=== PATIENT | female | born 1985 | race Caucasian/White ===

== ENCOUNTER → 2020-06-24 | Outpatient (CLI) | payer MEDICAID ==
[2020-06-24 12:07] LABS: INR 0.9 (<1.2); Partial Thromboplastin Time 23.3 sec (22.0-30.0); Prothrombin Time 10.2 sec (9.0-12.0)
[2020-06-24 14:48] LABS: HCT 41.6 % (37.2-46.3); HGB 14.3 g/dL (12.0-15.0); MCH 30.4 pg (27.0-32.0); MCHC 34.4 g/dL (32.0-37.0); MCV 88.5 fL (80.0-97.0); Mean Platelet Volume 11.1 fL (9.5-12.2); Platelet Count 176 X 10*3/uL (140-440); RDW 11.3 % (11.5-14.5)
[2020-06-24 16:22] LABS: % Iron Saturation 16.34 (12.00-45.00); African American GFR (CKD) 112.3 (60.0-200.0); Albumin 4.3 g/dL (3.80-4.90); Albumin/Globulin Ratio 1.95 (1.60-3.17); Anion Gap 6.3 mmol/L (4.00-12.00); BUN/Creat Ratio 16.25 Ratio (12.00-20.00); Calcium 9.4 mg/dL (8.7-10.3); Carbon Dioxide 27.7 mmol/L (21.6-31.8); Chol/HDL Ratio 3.75; Globulin 2.2 g/dL (1.6-3.3); LDL Cholesterol,Calculated 126.8 mg/dL (0.0-131.0); Non-African American GFR(CKD) 96.9 (60.0-200.0); Potassium 4.4 mmol/L (3.5-5.5); Total Protein 6.5 g/dL (6.2-8.2); VLDL Calculation 16.2 mg/dL (5.00-40.00)
[2020-06-24 16:31] LABS: Ferritin 93.3 ng/mL (10.0-291.0)
== END | disposition home or self-care (01) ==
LOC: LABWHC1 10:12
PROVIDERS: ATTEND Family Medicine
DX: Z00.01 Encounter for general adult medical examination with abnormal findings (principal); R58 Hemorrhage, not elsewhere classified
CPT/HCPCS: 36415; 80053; 80061; 82728; 83540; 83550; 84439; 84443; 85027; 85610; 85730

== ENCOUNTER → 2021-07-25 | Outpatient (CLI) | payer MEDICAID ==
[2021-07-25 22:42] LABS: HCT 39.5 % (37.2-46.3); HGB 13.3 g/dL (12.0-15.0); MCH 29.8 pg (27.0-32.0); MCHC 33.7 g/dL (32.0-37.0); MCV 88.6 fL (80.0-97.0); Mean Platelet Volume 11.1 fL (9.5-12.2); NRBC Per 100 WBC 0 /100 WBCS (0.0-0.0); Platelet Count 173 X 10*3/uL (140-440); RBC 4.46 X 10*6/uL (4.10-5.20); RDW 12.2 % (11.5-14.5); WBC 7.02 X 10*3/uL (4.50-10.00)
[2021-07-25 23:02] LABS: African American GFR (CKD) 132.7 (60.0-200.0); Non-African American GFR(CKD) 114.5 (60.0-200.0)
[2021-07-26 03:04] LABS: HIV 2 AB Non-Reactive (Non-Reactive); HIV AB P24 Non-Reactive (Non-Reactive); HIV P24 AG Non-Reactive (Non-Reactive)
[2021-07-26 03:41] LABS: Hepatitis B Surface Antigen Nonreactive (Nonreactive)
== END | disposition home or self-care (01) ==
LOC: LABWHC1 15:14
PROVIDERS: ATTEND Obstetrics & Gynecology
DX: Z34.81 Encounter for supervision of other normal pregnancy, first trimester (principal)
CPT/HCPCS: 36415; 82565; 82947; 85027; 86762; 86780; 86850; 86900; 86901; 87340; 87390

== ENCOUNTER → 2021-10-10 | Outpatient (CLI) | payer MEDICAID ==
[2021-10-11 03:17] LABS: Cardiolipin Ab IgM Interp Positive (NEGATIVE); Cardiolipin IgM Antibody >112.0 U/mL
[2021-10-11 05:29] LABS: Cardiolipin Ab IgG Interp NEGATIVE (NEGATIVE)
== END | disposition home or self-care (01) ==
LOC: LABWHC1 16:01
DX: Z86.718 Personal history of other venous thrombosis and embolism (principal)
CPT/HCPCS: 36415; 81240; 81241; 85300; 85303; 85306; 85613; 85730; 86147

== ENCOUNTER → 2021-11-20 | Outpatient (CLI) | payer MEDICAID | END | disposition home or self-care (01) | LOC: LABWHC1 09:56 | PROVIDERS: ATTEND Obstetrics & Gynecology | DX: Z34.82 Encounter for supervision of other normal pregnancy, second trimester (principal); Z3A.00 Weeks of gestation of pregnancy not specified | CPT/HCPCS: 36415; 82950 ==

== ENCOUNTER → 2021-11-24 | Outpatient (CLI) | payer MEDICAID ==
[2021-11-24 14:26] LABS: Glucose 3 Hour, Gest 55 mg/dL
== END | disposition home or self-care (01) ==
LOC: LABWHC1 09:30
PROVIDERS: ATTEND Obstetrics & Gynecology
DX: O99.810 Abnormal glucose complicating pregnancy (principal); Z3A.00 Weeks of gestation of pregnancy not specified
CPT/HCPCS: 36415; 82951; 82952

== ENCOUNTER 2021-12-22 14:06 | Outpatient (CLI) | payer MEDICAID ==
[2021-12-22 15:53] VITALS: BP 129/61; PULSE 72; RESP 18; TEMP 97.8
== END 2021-12-22 15:05 | disposition home or self-care (01) ==
LOC: FBPOP 14:06
PROVIDERS: ATTEND Obstetrics & Gynecology
DX: O26.893 Other specified pregnancy related conditions, third trimester (principal); Z3A.31 31 weeks gestation of pregnancy; O22.33 Deep phlebothrombosis in pregnancy, third trimester; O99.113 Other diseases of the blood and blood-forming organs and certain disorders involving the immune mechanism complicating pregnancy, third trimester
CPT/HCPCS: 59025

== ENCOUNTER → 2021-12-22 | Outpatient (CLI) | payer MEDICAID ==
--- NOTE | 2021-12-22 13:50 | US ---
EXAMINATION TYPE: US OB BPP wo non-stress DATE OF EXAM: 12/22/2021 COMPARISON: First trimester ultrasound June 30, 2021 CLINICAL HISTORY: O09.519 SUPERVISION OF ELDERLY PRIMIGRAVIDA, UNSPE. TECHNIQUE: Transabdominal (TA). Scoring by the musical instrument supervisor during real-time assessment. FINDINGS: BPP PARAMETERS: PRESENTATION: Breech HEART RATE: 145 bpm RHYTHM: Normal SRINATH: 11.5 DIAPHRAGM IMAGED: YES BPP SCORIN. Breathin (1 episode of breathing of 30 second duration in 30 minutes of scanning time) 2. Movement: 2 (at least 3 discrete body movements in 30 minutes) 3. Tone: 2 (1 episode of active flexion/extension of limb) 4. SRINATH: 2 (SRINATH index > 5cm) NURSING EDUCATION SPECIALIST NOTES: IMPRESSION: Normal NST. TOTAL SCORE: 8 / 8
== END | disposition home or self-care (01) ==
LOC: RADUSWWP 13:02
PROVIDERS: ATTEND Obstetrics & Gynecology
DX: O09.519 Supervision of elderly primigravida, unspecified trimester (principal)
CPT/HCPCS: 76819

== ENCOUNTER 2021-12-26 11:04 | Outpatient (CLI) | payer MEDICAID ==
--- NOTE | 2022-01-05 08:02 | P.MSEPDOC ---
Presenting Problems - Arrival Data Date of Arrival on Unit: 12/26/21 Time of Arrival on Unit: 11:04 Mode of Transport: Ambulatory - Complaint OB-Reason for Admission/Chief Complaint: NST Comment: pt has written order for twice a week NST due to antiphospholipid syndrome 099.119 and DVT 022.30 Medical History - Information : 1 Para: 0 Term: 0 : 0 Abortions: Spontaneous or Elective: 0 Number of Living Children: 0 - Gestational Age Gestational Age by HEATHER (wks/days): 32 Weeks and 3 Days Review of Systems - Review of Systems Constitutional: No problems Breast: No problems ENT: No problems Cardiovascular: No problems Respiratory: No problems Gastrointestinal: No problems Genitourinary: No problems Musculoskeletal: No problems Neurological: No problems Skin: No problems Medical Screen Scoring - Assessment - Baby A Baseline FHR: 145 Heart Rate - NICHD Category: Category I (Normal) NST: Reactive Physician Notification - Physician Notified Physician Notified Date: 12/26/21 Physician Notified Time: 11:50 Physician: Xochitl Gottlieb New Order Received: Yes - Notification Comment Comment: reactive nst, orders received to l[place] pt home, follow up at next scheduled appt on on Wednesday in the office Maternal Triage Index - Maternal Triage Index Presenting for scheduled procedure w/no complaint: Yes - Scheduled/Requesting Priority 5 Scheduled/Requesting Priority 5: Yes Criteria Met for Priority 5: pt has written order for twice a week NST due to antiphospholipid syndrome 099.119 and DVT 022.30 Disposition - Disposition OB Disposition: Triage, Discharge to home, Written follow up instructions reviewed Discharge Date: 12/26/21 Discharge Time: 11:50 I agree with the RN Medical Screening Exam: Yes Case reviewed; plan agreed upon as documented in EMR&OBIX.: Yes Diagnosis: DEEP PHLEBOTHROMBOSIS IN , UNSPECIFIED TRIMESTER
== END 2021-12-26 11:50 | disposition home or self-care (01) ==
LOC: FBPOP 11:04
PROVIDERS: ATTEND Obstetrics & Gynecology
DX: O26.893 Other specified pregnancy related conditions, third trimester (principal); Z3A.32 32 weeks gestation of pregnancy; O22.33 Deep phlebothrombosis in pregnancy, third trimester
CPT/HCPCS: 59025

== ENCOUNTER 2021-12-30 13:14 | Outpatient (CLI) | payer MEDICAID | END 2021-12-30 13:59 | disposition home or self-care (01) | LOC: FBPOP 13:14 | PROVIDERS: ATTEND Obstetrics & Gynecology | DX: O26.893 Other specified pregnancy related conditions, third trimester (principal); Z3A.33 33 weeks gestation of pregnancy; O99.113 Other diseases of the blood and blood-forming organs and certain disorders involving the immune mechanism complicating pregnancy, third trimester; O22.33 Deep phlebothrombosis in pregnancy, third trimester | CPT/HCPCS: 59025 ==

== ENCOUNTER 2022-01-02 08:47 | Outpatient (CLI) | payer MEDICAID ==
[2022-01-02 09:18] VITALS: BP 113/68; PULSE 81; RESP 16
--- NOTE | 2022-01-02 09:32 | P.MSEPDOC ---
Presenting Problems - Arrival Data Date of Arrival on Unit: 01/02/22 Time of Arrival on Unit: 08:47 Mode of Transport: Ambulatory - Complaint OB-Reason for Admission/Chief Complaint: NST Comment: biweekly NST-Antiphospholipid Syndrome Medical History - Information : 1 Para: 0 - Gestational Age Gestational Age by HEATHER (wks/days): 33 Weeks and 3 Days Review of Systems - Review of Systems Constitutional: No problems Breast: No problems ENT: No problems Cardiovascular: No problems Respiratory: No problems Gastrointestinal: No problems Genitourinary: No problems Musculoskeletal: No problems Neurological: No problems Skin: No problems Vital Signs - Pulse Right Sitting Brachial Pulse Rate: 81 Pulse Assessment Method: Automatic Cuff - Respirations Respiratory Rate: 16 Oxygen Delivery Method: Room Air O2 Sat by Pulse Oximetry: 97 - Blood Pressure Right Arm Sitting Blood Pressure: 113/68 Blood Pressure Mean: 83 Blood Pressure Source: Automatic Cuff Medical Screen Scoring - Assessment - Baby A Baseline FHR: 130 Heart Rate - NICHD Category: Category I (Normal) NST: Reactive Physician Notification - Notification Comment Comment: Biweekly NST c\order; pt to be d/c home c\reactive NST Maternal Triage Index - Maternal Triage Index Presenting for scheduled procedure w/no complaint: Yes - Scheduled/Requesting Priority 5 Scheduled/Requesting Priority 5: Yes Criteria Met for Priority 5: BiweeklyNST Disposition - Disposition OB Disposition: Discharge to home, Written follow up instructions reviewed Discharge Date: 01/02/22 Discharge Time: 09:25 I agree with the RN Medical Screening Exam: Yes Case reviewed; plan agreed upon as documented in EMR&OBIX.: Yes Diagnosis: SUPERVISION OF OTHER HIGH RISK PREGNANCIES, THIRD TRIMESTER
== END 2022-01-02 09:20 | disposition home or self-care (01) ==
LOC: FBPOP 08:47
PROVIDERS: ATTEND Obstetrics & Gynecology
DX: O09.893 Supervision of other high risk pregnancies, third trimester (principal); Z3A.33 33 weeks gestation of pregnancy
CPT/HCPCS: 59025

== ENCOUNTER 2022-01-06 11:42 | Outpatient (CLI) | payer MEDICAID ==
[2022-01-06 13:04] VITALS: BP 113/68; PULSE 81; RESP 18
--- NOTE | 2022-01-09 06:55 | P.MSEPDOC ---
Presenting Problems - Arrival Data Date of Arrival on Unit: 01/06/22 Time of Arrival on Unit: 11:42 Mode of Transport: Ambulatory - Complaint OB-Reason for Admission/Chief Complaint: NST Comment: Antiphospholipid [id number] DVT 022.30 Medical History - Information : 1 Para: 0 Term: 0 : 0 Abortions: Spontaneous or Elective: 0 Number of Living Children: 0 - Gestational Age Gestational Age by HEATHER (wks/days): 34 Weeks and 0 Days - History Comment: Antiphospholipid [id number] DVT 022.30 on Lovenox Review of Systems - Review of Systems Constitutional: No problems Breast: No problems ENT: No problems Cardiovascular: No problems Respiratory: No problems Gastrointestinal: No problems Genitourinary: No problems Musculoskeletal: No problems Neurological: No problems Skin: No problems Vital Signs - Pulse Pulse Oximetery Pulse Rate: 81 Pulse Assessment Method: Automatic Cuff - Respirations Respiratory Rate: 18 Oxygen Delivery Method: Room Air O2 Sat by Pulse Oximetry: 97 - Blood Pressure Right Arm Blood Pressure: 113/68 Blood Pressure Mean: 83 Blood Pressure Source: Automatic Cuff Medical Screen Scoring - Uterine Contractions Frequency From (mins): 0 Frequency To (mins): 0 Duration From (seconds): 0 Duration To (seconds): 0 - Assessment - Baby A Baseline FHR: 135 Heart Rate - NICHD Category: Category I (Normal) NST: Reactive Physician Notification - Physician Notified Physician Notified Date: 01/06/22 Physician: Isabela Palacios Order Received: Yes - Notification Comment Comment: Discharge home is NST reactive Maternal Triage Index - Maternal Triage Index Presenting for scheduled procedure w/no complaint: Yes - Scheduled/Requesting Priority 5 Scheduled/Requesting Priority 5: Yes Criteria Met for Priority 5: Here for twice a weekly NST Disposition - Disposition OB Disposition: Discharge to home Discharge Date: 01/06/22 Discharge Time: 12:37 I agree with the RN Medical Screening Exam: Yes Case reviewed; plan agreed upon as documented in EMR&OBIX.: Yes Diagnosis: ANTIPHOSPHOLIPID SYNDROME
== END 2022-01-06 12:37 | disposition home or self-care (01) ==
LOC: FBPOP 11:42
PROVIDERS: ATTEND Obstetrics & Gynecology
DX: O26.893 Other specified pregnancy related conditions, third trimester (principal); Z3A.34 34 weeks gestation of pregnancy; O99.113 Other diseases of the blood and blood-forming organs and certain disorders involving the immune mechanism complicating pregnancy, third trimester; D68.61 Antiphospholipid syndrome
CPT/HCPCS: 59025

== ENCOUNTER 2022-01-08 14:25 | Outpatient (CLI) | payer MEDICAID ==
[2022-01-08 14:55] VITALS: BP 122/77; PULSE 84; RESP 16; TEMP 96.9
--- NOTE | 2022-01-09 06:53 | P.MSEPDOC ---
Presenting Problems - Arrival Data Date of Arrival on Unit: 01/08/22 Time of Arrival on Unit: 14:25 Mode of Transport: Ambulatory - Complaint OB-Reason for Admission/Chief Complaint: NST Medical History - Information : 1 Para: 0 Number of Living Children: 0 - Gestational Age Gestational Age by HEATHER (wks/days): 34 Weeks and 2 Days - History Complications: Other Review of Systems - Review of Systems Constitutional: No problems Breast: No problems ENT: No problems Cardiovascular: No problems Respiratory: No problems Gastrointestinal: No problems Genitourinary: No problems Musculoskeletal: No problems Neurological: No problems Skin: No problems Vital Signs - Temperature Temperature: 96.9 F Temperature Source: Temporal Artery Scan - Pulse Right Sitting Brachial Pulse Rate: 84 Pulse Assessment Method: Automatic Cuff - Respirations Respiratory Rate: 16 Oxygen Delivery Method: Room Air O2 Sat by Pulse Oximetry: 100 - Blood Pressure Right Arm Sitting Blood Pressure: 122/77 Blood Pressure Mean: 92 Blood Pressure Source: Automatic Cuff Maternal Triage Index - Maternal Triage Index Presenting for scheduled procedure w/no complaint: Yes - Scheduled/Requesting Priority 5 Scheduled/Requesting Priority 5: Yes Criteria Met for Priority 5: written order for twice weekly NST Disposition - Disposition OB Disposition: Discharge to home Discharge Date: 01/08/22 Discharge Time: 14:54 I agree with the RN Medical Screening Exam: Yes Case reviewed; plan agreed upon as documented in EMR&OBIX.: Yes Diagnosis: SUPERVISION OF ELDERLY PRIMIGRAVIDA, THIRD TRIMESTER
== END 2022-01-08 14:55 | disposition home or self-care (01) ==
LOC: FBPOP 14:25
PROVIDERS: ATTEND Obstetrics & Gynecology
DX: O09.513 Supervision of elderly primigravida, third trimester (principal); Z3A.34 34 weeks gestation of pregnancy
CPT/HCPCS: 59025

== ENCOUNTER → 2022-01-08 | Outpatient (CLI) | payer MEDICAID ==
--- NOTE | 2022-01-08 17:04 | US ---
EXAMINATION TYPE: US OB BPP wo non-stress DATE OF EXAM: 01/08/2022 COMPARISON: 12/22/2021 CLINICAL HISTORY: 36-year-old female O09.529 O99.119. NST TECHNIQUE: Transabdominal (TA). Scoring by the physician intensivist during real-time assessment. FINDINGS: BPP PARAMETERS: PRESENTATION: Breech HEART RATE: 148 bpm RHYTHM: Normal SRINATH: 12.83 cm DIAPHRAGM IMAGED: Yes BPP SCORIN. Breathin (1 episode of breathing of 30 second duration in 30 minutes of scanning time) 2. Movement: 2 (at least 3 discrete body movements in 30 minutes) 3. Tone: 2 (1 episode of active flexion/extension of limb) 4. SRINATH: 2 (SRINATH index > 5cm) IMPRESSION: TOTAL SCORE: 8 / 8
== END | disposition home or self-care (01) ==
LOC: RADUSWWP 13:30
PROVIDERS: ATTEND Obstetrics & Gynecology
DX: O09.529 Supervision of elderly multigravida, unspecified trimester (principal); O99.119 Other diseases of the blood and blood-forming organs and certain disorders involving the immune mechanism complicating pregnancy, unspecified trimester
CPT/HCPCS: 76819

== ENCOUNTER 2022-01-13 12:01 | Outpatient (CLI) | payer MEDICAID | END 2022-01-13 12:35 | disposition home or self-care (01) | LOC: FBPOP 12:01 | PROVIDERS: ATTEND Obstetrics & Gynecology | DX: O26.893 Other specified pregnancy related conditions, third trimester (principal); Z3A.35 35 weeks gestation of pregnancy; O22.33 Deep phlebothrombosis in pregnancy, third trimester; O99.113 Other diseases of the blood and blood-forming organs and certain disorders involving the immune mechanism complicating pregnancy, third trimester | CPT/HCPCS: 59025 ==

== ENCOUNTER 2022-01-15 13:40 | Outpatient (CLI) | payer MEDICAID ==
--- NOTE | 2022-01-16 08:41 | P.MSEPDOC ---
Presenting Problems - Arrival Data Date of Arrival on Unit: 01/15/22 Time of Arrival on Unit: 13:40 Mode of Transport: Ambulatory - Complaint OB-Reason for Admission/Chief Complaint: NST Comment: pt presents to triage for bi weekly NST for antiphospholipid syndrome 099.119 and DVT 022.30 Medical History - Information : 1 Para: 0 Term: 0 : 0 Abortions: Spontaneous or Elective: 0 Number of Living Children: 0 - Gestational Age Gestational Age by HEATHER (wks/days): 35 Weeks and 2 Days - History Complications: Breech Review of Systems - Review of Systems Constitutional: No problems Breast: No problems ENT: No problems Cardiovascular: No problems Respiratory: No problems Gastrointestinal: No problems Genitourinary: No problems Musculoskeletal: No problems Neurological: No problems Skin: No problems Medical Screen Scoring - Assessment - Baby A Baseline FHR: 140 Heart Rate - NICHD Category: Category I (Normal) NST: Reactive Physician Notification - Notification Comment Comment: NST reactive Maternal Triage Index - Maternal Triage Index Presenting for scheduled procedure w/no complaint: Yes - Stat/Priority 1 Stat Priority 1: No - Urgent/Priority 2 Urgent Priority 2: No - Prompt/Priority 3 Prompt Priority 3: No - Non-Urgent/Priority 4 Non-Urgent Priority 4: No - Scheduled/Requesting Priority 5 Scheduled/Requesting Priority 5: Yes Criteria Met for Priority 5: pt presents to triage for bi weekly NST for antiphospholipid syndrome 099.119 and DVT 022.30 Disposition - Disposition OB Disposition: Triage, Discharge to home, Written follow up instructions reviewed Discharge Date: 01/15/22 Discharge Time: 14:30 I agree with the RN Medical Screening Exam: Yes Case reviewed; plan agreed upon as documented in EMR&OBIX.: Yes Diagnosis: SUPERVISION OF OTHER HIGH RISK PREGNANCIES, THIRD TRIMESTER
== END 2022-01-15 14:25 | disposition home or self-care (01) ==
LOC: FBPOP 13:40
PROVIDERS: ATTEND Obstetrics & Gynecology
DX: O09.893 Supervision of other high risk pregnancies, third trimester (principal); Z3A.35 35 weeks gestation of pregnancy
CPT/HCPCS: 59025

== ENCOUNTER → 2022-01-15 | Outpatient (CLI) | payer MEDICAID ==
--- NOTE | 2022-01-15 17:00 | US ---
EXAMINATION TYPE: US OB BPP wo non-stress DATE OF EXAM: 01/15/2022 COMPARISON: NONE CLINICAL HISTORY: 36-year-old female AMA O09.529, O99.119. Decreased movements TECHNIQUE: Transabdominal (TA). Scoring by the countersinker balance screw hole during real-time assessment. FINDINGS: BPP PARAMETERS: PRESENTATION: Breech LIE: Longitudinal?? HEART RATE: 125 bpm RHYTHM: Normal SRINATH: 10.8 DIAPHRAGM IMAGED: yes BPP SCORIN. Breathin (1 episode of breathing of 30 second duration in 30 minutes of scanning time) 2. Movement: 2 (at least 3 discrete body movements in 30 minutes) 3. Tone: 2 (1 episode of active flexion/extension of limb) 4. SRINATH: 2 (SRINATH index > 5cm) IMPRESSION: TOTAL SCORE: 8 / 8
== END | disposition home or self-care (01) ==
LOC: RADUSWWP 12:22
PROVIDERS: ATTEND Obstetrics & Gynecology
DX: O09.529 Supervision of elderly multigravida, unspecified trimester (principal); O99.119 Other diseases of the blood and blood-forming organs and certain disorders involving the immune mechanism complicating pregnancy, unspecified trimester
CPT/HCPCS: 76819

== ENCOUNTER 2022-01-20 13:51 | Outpatient (CLI) | payer MEDICAID ==
[2022-01-20 14:26] VITALS: BP 116/68; PULSE 88; RESP 15; TEMP 97
--- NOTE | 2022-01-21 19:24 | P.MSEPDOC ---
Presenting Problems - Arrival Data Date of Arrival on Unit: 01/20/22 Time of Arrival on Unit: 13:51 Mode of Transport: Ambulatory - Complaint OB-Reason for Admission/Chief Complaint: NST Comment: Pt presents to triage for bi-weekly NST per written order from Dr. Palacios for Antiphospholipid Syndrome O99.119 and DVT O22.30 Medical History - Information : 1 Para: 0 Term: 0 : 0 Abortions: Spontaneous or Elective: 0 Number of Living Children: 0 - Gestational Age Gestational Age by HEATHER (wks/days): 36 Weeks and 0 Days Review of Systems - Review of Systems Constitutional: No problems Breast: No problems ENT: No problems Cardiovascular: No problems Respiratory: No problems Gastrointestinal: No problems Genitourinary: No problems Musculoskeletal: No problems Neurological: No problems Skin: No problems Vital Signs - Temperature Temperature: 97.0 F Temperature Source: Temporal Artery Scan - Pulse Pulse Oximetery Pulse Rate: 88 Pulse Assessment Method: Pulse Oximetry - Respirations Respiratory Rate: 15 Oxygen Delivery Method: Room Air O2 Sat by Pulse Oximetry: 95 - Blood Pressure Right Arm Blood Pressure: 116/68 Blood Pressure Mean: 84 Blood Pressure Source: Automatic Cuff Medical Screen Scoring - Assessment - Baby A Baseline FHR: 145 Heart Rate - NICHD Category: Category I (Normal) NST: Reactive Physician Notification - Notification Comment Comment: Pt discharged home per written order if NST reactive Maternal Triage Index - Maternal Triage Index Presenting for scheduled procedure w/no complaint: Yes - Scheduled/Requesting Priority 5 Scheduled/Requesting Priority 5: Yes Criteria Met for Priority 5: Pt presents to triage for bi-weekly NST per written order from Dr. Palacios for Antiphospholipid Syndrome O99.119 and DVT O22.30 Disposition - Disposition OB Disposition: Discharge to home, Written follow up instructions reviewed Discharge Date: 01/20/22 Discharge Time: 14:19 I agree with the RN Medical Screening Exam: Yes Case reviewed; plan agreed upon as documented in EMR&OBIX.: Yes Diagnosis: SUPERVISION OF OTHER HIGH RISK PREGNANCIES, THIRD TRIMESTER
== END 2022-01-20 14:19 | disposition home or self-care (01) ==
LOC: FBPOP 13:51
PROVIDERS: ATTEND Obstetrics & Gynecology
DX: O22.33 Deep phlebothrombosis in pregnancy, third trimester (principal); D68.61 Antiphospholipid syndrome; O09.893 Supervision of other high risk pregnancies, third trimester; O99.113 Other diseases of the blood and blood-forming organs and certain disorders involving the immune mechanism complicating pregnancy, third trimester; Z3A.36 36 weeks gestation of pregnancy
CPT/HCPCS: 59025

== ENCOUNTER 2022-01-22 14:00 | Outpatient (CLI) | payer MEDICAID ==
[2022-01-22 14:50] VITALS: BP 128/87; PULSE 83; RESP 18; TEMP 98
--- NOTE | 2022-01-24 09:13 | P.MSEPDOC ---
Presenting Problems - Arrival Data Date of Arrival on Unit: 01/22/22 Time of Arrival on Unit: 14:00 Mode of Transport: Ambulatory - Complaint OB-Reason for Admission/Chief Complaint: NST Medical History - Information : 1 Para: 0 Term: 0 : 0 Abortions: Spontaneous or Elective: 0 Number of Living Children: 0 - Gestational Age Gestational Age by HEATHER (wks/days): 36 Weeks and 2 Days - History Comment: Hx DVT on heparin, antiphospholipid syndrome Review of Systems - Review of Systems Constitutional: No problems Breast: No problems ENT: No problems Cardiovascular: No problems Respiratory: No problems Gastrointestinal: No problems Genitourinary: No problems Musculoskeletal: No problems Neurological: No problems Skin: No problems Vital Signs - Temperature Temperature: 98.0 F Temperature Source: Oral - Pulse Right Sitting Brachial Pulse Rate: 83 Pulse Assessment Method: Automatic Cuff - Respirations Respiratory Rate: 18 Oxygen Delivery Method: Room Air O2 Sat by Pulse Oximetry: 98 - Blood Pressure Right Arm Sitting Blood Pressure: 128/87 Blood Pressure Mean: 100 Blood Pressure Source: Automatic Cuff Medical Screen Scoring - Cervical Exam Dilation (cm): 0 Effacement (%): 0 Station: -2 - Uterine Contractions Frequency From (mins): 2 Frequency To (mins): 4 Duration From (seconds): 30 Duration To (seconds): 40 Intensity: Mild Resting: Soft to palpation - Assessment - Baby A Baseline FHR: 125 Heart Rate - NICHD Category: Category I (Normal) NST: Reactive Physician Notification - Physician Notified Physician Notified Date: 01/22/22 Physician Notified Time: 14:45 Physician: Xochitl Gottlieb New Order Received: Yes (al home. Follow up with Dr Palacios tomorrow as scheduled.) Maternal Triage Index - Maternal Triage Index Presenting for scheduled procedure w/no complaint: Yes - Scheduled/Requesting Priority 5 Scheduled/Requesting Priority 5: Yes Criteria Met for Priority 5: bi weekly NST Disposition - Disposition OB Disposition: Discharge to home Discharge Date: 01/22/22 Discharge Time: 14:45 I agree with the RN Medical Screening Exam: Yes Case reviewed; plan agreed upon as documented in EMR&OBIX.: Yes Diagnosis: SUPERVISION OF HIGH RISK , UNSP, THIRD TRIMESTER
== END 2022-01-22 14:50 | disposition home or self-care (01) ==
LOC: FBPOP 14:00
PROVIDERS: ATTEND Obstetrics & Gynecology
DX: O09.893 Supervision of other high risk pregnancies, third trimester (principal); Z3A.36 36 weeks gestation of pregnancy
CPT/HCPCS: 59025

== ENCOUNTER → 2022-01-22 | Outpatient (CLI) | payer MEDICAID ==
--- NOTE | 2022-01-22 14:13 | US ---
EXAMINATION TYPE: US OB BPP wo non-stress DATE OF EXAM: 01/22/2022 COMPARISON: US CLINICAL HISTORY: O09.529 SUPERVISION OF ELDERLY MULTIGRAVID O99.119. BPP. . TECHNIQUE: Transabdominal (TA). Scoring by the planting machine operator during real-time assessment. FINDINGS: BPP PARAMETERS: PRESENTATION: Breech LIE: Longitudinal?? HEART RATE: 136 bpm RHYTHM: Normal SRINATH: 12.0 DIAPHRAGM IMAGED: Yes BPP SCORIN. Breathin (1 episode of breathing of 30 second duration in 30 minutes of scanning time) 2. Movement: 2 (at least 3 discrete body movements in 30 minutes) 3. Tone: 2 (1 episode of active flexion/extension of limb) 4. SRINATH: 2 (SRINATH index > 5cm) NUTRITIONALIST NOTES: IMPRESSION: TOTAL SCORE: 8 / 8
== END | disposition home or self-care (01) ==
LOC: RADUSWWP 13:05
PROVIDERS: ATTEND Obstetrics & Gynecology
DX: O09.529 Supervision of elderly multigravida, unspecified trimester (principal); O99.119 Other diseases of the blood and blood-forming organs and certain disorders involving the immune mechanism complicating pregnancy, unspecified trimester
CPT/HCPCS: 76819

== ENCOUNTER 2022-01-27 17:13 | Outpatient (CLI) | payer MEDICAID ==
[2022-01-27 17:52] VITALS: BP 128/81; PULSE 87; RESP 16; TEMP 97
== END 2022-01-27 17:45 | disposition home or self-care (01) ==
LOC: FBPOP 17:13
PROVIDERS: ATTEND Obstetrics & Gynecology
DX: O99.113 Other diseases of the blood and blood-forming organs and certain disorders involving the immune mechanism complicating pregnancy, third trimester (principal); D68.61 Antiphospholipid syndrome; O22.33 Deep phlebothrombosis in pregnancy, third trimester; Z3A.37 37 weeks gestation of pregnancy
CPT/HCPCS: 59025

== ENCOUNTER → 2022-01-27 | Outpatient (CLI) | payer MEDICAID ==
[2022-01-27 22:54] LABS: HCT 35.3 % (37.2-46.3); HGB 11.9 g/dL (12.0-15.0); MCH 30.7 pg (27.0-32.0); MCHC 33.7 g/dL (32.0-37.0); MCV 91.2 fL (80.0-97.0); Mean Platelet Volume 11.7 fL (9.5-12.2); NRBC Per 100 WBC 0 /100 WBCS (0.0-0.0); Platelet Count 140 X 10*3/uL (140-440); RBC 3.87 X 10*6/uL (4.10-5.20); RDW 13.1 % (11.5-14.5); WBC 10.96 X 10*3/uL (4.50-10.00)
[2022-01-27 23:47] LABS: Non-African American GFR(CKD) 114.8 (60.0-200.0)
== END | disposition home or self-care (01) ==
LOC: LABWHC1 16:18
PROVIDERS: ATTEND Internal Medicine
DX: O16.3 Unspecified maternal hypertension, third trimester (principal); Z3A.00 Weeks of gestation of pregnancy not specified
CPT/HCPCS: 36415; 82565; 82570; 83625; 84156; 84450; 84460; 85027

== ENCOUNTER 2022-01-29 19:32 | Outpatient (CLI) | payer MEDICAID ==
[2022-01-29 20:35] VITALS: BP 120/76; PULSE 101; RESP 16; TEMP 96.4
--- NOTE | 2022-02-05 12:06 | P.MSEPDOC ---
Presenting Problems - Arrival Data Date of Arrival on Unit: 01/29/22 Time of Arrival on Unit: 19:32 Mode of Transport: Ambulatory - Complaint OB-Reason for Admission/Chief Complaint: NST Comment: Patient presents to triage for weekly NST per physician order. Medical History - Information : 1 Para: 0 - Gestational Age Gestational Age by HEATHER (wks/days): 89 Weeks and 3 Days - History Comment: mother has history of superficial blood clots and is currently on heparin Review of Systems - Review of Systems Constitutional: No problems Breast: No problems ENT: No problems Cardiovascular: No problems Respiratory: No problems Gastrointestinal: No problems Genitourinary: No problems Musculoskeletal: No problems Neurological: No problems Skin: No problems Vital Signs - Temperature Temperature: 96.4 F Temperature Source: Axillary - Pulse Pulse Oximetery Pulse Rate: 101 Pulse Assessment Method: Pulse Oximetry - Respirations Respiratory Rate: 16 Oxygen Delivery Method: Room Air O2 Sat by Pulse Oximetry: 96 - Blood Pressure Right Arm Blood Pressure: 120/76 Blood Pressure Mean: 90 Blood Pressure Source: Automatic Cuff Medical Screen Scoring - Assessment - Baby A Baseline FHR: 135 Heart Rate - NICHD Category: Category I (Normal) NST: Reactive Physician Notification - Physician Notified Physician Notified Date: 01/29/22 Physician Notified Time: 19:32 Maternal Triage Index - Stat/Priority 1 Stat Priority 1: No - Urgent/Priority 2 Urgent Priority 2: No - Prompt/Priority 3 Prompt Priority 3: No - Non-Urgent/Priority 4 Non-Urgent Priority 4: Yes Criteria Met for Priority 4: Patient presents to triage for weekly NST per physician order. Disposition - Disposition OB Disposition: Discharge to home Discharge Date: 01/29/22 Discharge Time: 20:00 I agree with the RN Medical Screening Exam: Yes Case reviewed; plan agreed upon as documented in EMR&OBIX.: Yes Diagnosis: OBESITY COMPLICATING , THIRD TRIMESTER
== END 2022-01-29 20:02 ==
LOC: FBPOP 19:32
PROVIDERS: ATTEND Obstetrics & Gynecology
DX: O99.213 Obesity complicating pregnancy, third trimester (principal); Z3A.39 39 weeks gestation of pregnancy
CPT/HCPCS: 99213

== ENCOUNTER 2022-02-03 11:32 | Outpatient (CLI) | payer MEDICAID ==
[2022-02-03 12:41] VITALS: BP 120/70; PULSE 94; RESP 18; TEMP 97.2
--- NOTE | 2022-02-03 21:26 | P.MSEPDOC ---
Presenting Problems - Arrival Data Date of Arrival on Unit: 02/03/22 Time of Arrival on Unit: 11:32 Mode of Transport: Ambulatory - Complaint OB-Reason for Admission/Chief Complaint: NST Comment: NST for hx of DVT 022.30 and Antiphospholipid syndrome 099.119 Medical History - Information : 1 Para: 0 Term: 0 : 0 Abortions: Spontaneous or Elective: 0 Number of Living Children: 0 - Gestational Age Gestational Age by HEATEHR (wks/days): 38 Weeks and 0 Days - History Complications: Other Comment: Antiphospholipid syndrome Review of Systems - Review of Systems Constitutional: No problems Breast: No problems ENT: No problems Cardiovascular: No problems Respiratory: No problems Gastrointestinal: No problems Genitourinary: No problems Musculoskeletal: No problems Neurological: No problems Skin: No problems Vital Signs - Temperature Temperature: 97.2 F Temperature Source: Temporal Artery Scan - Pulse Pulse Oximetery Pulse Rate: 94 Pulse Assessment Method: Pulse Oximetry - Respirations Respiratory Rate: 18 Oxygen Delivery Method: Room Air O2 Sat by Pulse Oximetry: 99 - Blood Pressure Right Arm Blood Pressure: 120/70 Blood Pressure Mean: 86 Blood Pressure Source: Automatic Cuff Medical Screen Scoring - Assessment - Baby A Baseline FHR: 135 Heart Rate - NICHD Category: Category I (Normal) NST: Reactive Physician Notification - Notification Comment Comment: Twice weekly NST, written orders to discharge home if reactive Maternal Triage Index - Maternal Triage Index Presenting for scheduled procedure w/no complaint: Yes - Scheduled/Requesting Priority 5 Scheduled/Requesting Priority 5: Yes Criteria Met for Priority 5: Twice weekly NST Disposition - Disposition OB Disposition: Discharge to home Discharge Date: 02/03/22 Discharge Time: 12:20 I agree with the RN Medical Screening Exam: Yes Case reviewed; plan agreed upon as documented in EMR&OBIX.: Yes Diagnosis: OBESITY COMPLICATING , THIRD TRIMESTER
== END 2022-02-03 12:20 | disposition home or self-care (01) ==
LOC: FBPOP 11:32
PROVIDERS: ATTEND Obstetrics & Gynecology
DX: O99.213 Obesity complicating pregnancy, third trimester (principal); Z3A.38 38 weeks gestation of pregnancy
CPT/HCPCS: 59025; 99213

== ENCOUNTER → 2022-02-03 | Outpatient (CLI) | payer MEDICAID ==
--- NOTE | 2022-02-03 11:54 | US ---
EXAMINATION TYPE: US OB BPP wo non-stress DATE OF EXAM: 02/03/2022 COMPARISON: 01/22/2022 CLINICAL HISTORY: 36-year-old female O09.529 SUPERVISION OF ELDERLY MULTIGRAVID O99.119. BPP TECHNIQUE: Transabdominal (TA). Scoring by the hog pusher during real-time assessment. FINDINGS: BPP PARAMETERS: PRESENTATION: Breech HEART RATE: 132 bpm RHYTHM: Normal SRINATH: 8.9 cm DIAPHRAGM IMAGED: Yes BPP SCORIN. Breathin (1 episode of breathing of 30 second duration in 30 minutes of scanning time) 2. Movement: 2 (at least 3 discrete body movements in 30 minutes) 3. Tone: 2 (1 episode of active flexion/extension of limb) 4. SRINATH: 2 (SRINATH index > 5cm) IMPRESSION: TOTAL SCORE: 8 / 8. Note that the SRINATH is at the lower end of the normal range at 8.9 cm (measured at 12 cm previously).
== END | disposition home or self-care (01) ==
LOC: RADUSWWP 11:03
PROVIDERS: ATTEND Obstetrics & Gynecology
DX: O09.529 Supervision of elderly multigravida, unspecified trimester (principal); O99.119 Other diseases of the blood and blood-forming organs and certain disorders involving the immune mechanism complicating pregnancy, unspecified trimester
CPT/HCPCS: 76819

== ENCOUNTER 2022-02-06 13:59 | Outpatient (CLI) | payer MEDICAID ==
[2022-02-06 15:08] VITALS: BP 121/79; PULSE 87; RESP 16; TEMP 96.5
== END 2022-02-06 14:35 | disposition home or self-care (01) ==
LOC: FBPOP 13:59
PROVIDERS: ATTEND Obstetrics & Gynecology
DX: O22.30 Deep phlebothrombosis in pregnancy, unspecified trimester (principal); O99.119 Other diseases of the blood and blood-forming organs and certain disorders involving the immune mechanism complicating pregnancy, unspecified trimester; Z3A.38 38 weeks gestation of pregnancy
CPT/HCPCS: 59025

== ENCOUNTER 2022-02-10 18:25 | Inpatient (IN) | payer MEDICAID ==
[2022-02-10] MEDS ORDERED: ceFAZolin 3 GM in SODIUM CHLORIDE 0.9% 100 ML IVPB ONE (18:58)
[2022-02-10] MEDS ORDERED: LACTATED RINGERS 1,000 ML IV ONE (18:58)
[2022-02-10] MEDS ORDERED: CITRIC ACID-SODIUM CITRATE 15 ML CUP PO ONE (18:58)
[2022-02-10] MEDS ORDERED: LIDOCAINE 1% (10MG/ML) FOR IV START INTRADERMA PRN (18:58)
[2022-02-10 19:10] LABS: Basophils # (A) 0.1 k/uL (0-0.2); Basophils % (A) 1 %; Eosinophils # (A) 0.1 k/uL (0-0.7); Eosinophils % (A) 1 %; HCT 35.9 % (34.0-46.0); Lymphocytes # (A) 1.8 k/uL (1.0-4.8); Lymphocytes % (A) 17 %; MCH 31.2 pg (25.0-35.0); MCHC 36.2 g/dL (31.0-37.0); MCV 86.2 fL (80.0-100.0); Mean Platelet Volume 9.4; Monocytes # (A) 0.5 k/uL (0-1.0); Monocytes % (A) 4 %; Neutrophils # (A) 8.2 k/uL (1.3-7.7); Neutrophils % (A) 76 %; Platelet Count 151 k/uL (150-450); RBC 4.17 m/uL (3.80-5.40); RDW 13.3 % (11.5-15.5); WBC 10.9 k/uL (3.8-10.6)
[2022-02-10] MEDS: LACTATED RINGERS 1,000 ML IV SCH (19:20)
[2022-02-10] MEDS ORDERED: diphenhydrAMINE 50 MG/ML 1 ML VIAL IVP PRN ×2 (20:05→20:37)
[2022-02-10] MEDS ORDERED: ONDANSETRON 4 MG/2 ML VIAL IVP PRN (20:05)
[2022-02-10] MEDS ORDERED: NALBUPHINE 10 MG/ML (1 ML AMP) IV PRN (20:05)
[2022-02-10] MEDS ORDERED: NALOXONE 0.4 MG/ML 1 ML VIAL IV PRN (20:05)
[2022-02-10] MEDS ORDERED: MORPHINE SULFATE 2 MG/ML SYRINGE IVP PRN (20:05)
[2022-02-10] MEDS ORDERED: KETOROLAC 15 MG/ML 1 ML VIAL IVP PRN (20:05)
[2022-02-10] MEDS ORDERED: diphenhydrAMINE 50 MG CAP PO PRN (20:37)
[2022-02-10] MEDS ORDERED: ZOLPIDEM 5 MG TAB PO PRN (20:37)
[2022-02-10] MEDS ORDERED: LANOLIN CREAM 5 GM TUBE TOPICAL PRN (20:37)
[2022-02-10] MEDS ORDERED: METOCLOPRAMIDE 5 MG/ML 2 ML VIAL IVP PRN (20:37)
[2022-02-10] MEDS ORDERED: diphenhydrAMINE 25 MG CAP PO PRN (20:37)
[2022-02-10] MEDS ORDERED: SIMETHICONE 80 MG CHEWABLE PO PRN (20:37)
[2022-02-10] MEDS ORDERED: OXYTOCIN 30 UNITS/500 ML NS 30 UNIT in SALINE 1 500ML.BAG IV SCH (20:37)
[2022-02-11] MEDS: ACETAMINOPHEN TAB 500 MG TAB PO SCH ×4 (00:07→18:07)
[2022-02-11] MEDS: ACETAMINOPHEN IV (For NPO) 1,000 MG in EMPTY BAG 1 BAG IVPB SCH ×2 (00:08→09:15)
[2022-02-11] MEDS: LACTATED RINGERS 1,000 ML IV SCH ×2 (00:09→13:58)
[2022-02-11] MEDS: IBUPROFEN 600 MG TAB PO SCH ×4 (05:29→21:29)
--- NOTE | 2022-02-11 07:33 | P.PN ---
Progress Note - Text Progress Note Date: 02/11/22 Postop day 1 from under spinal anesthesia with intrathecal morphine given for postop pain management. Patient is doing well. Pain is well controlled. On visual analog scale 2/10 Mild itching present No nausea or vomiting reported. No Headache or weakness and numbness in the legs. No complications from spinal anesthesia.
[2022-02-11] MEDS: SENNOSIDES-DOCUSATE SODIUM 1 EACH TAB PO SCH ×2 (08:10→20:35)
[2022-02-11 08:36] LABS: Basophils % (A) 0 %; Eosinophils # (A) 0.1 k/uL (0-0.7); Eosinophils % (A) 1 %; HCT 31.5 % (34.0-46.0); HGB 11.2 gm/dL (11.4-16.0); Lymphocytes # (A) 1.8 k/uL (1.0-4.8); Lymphocytes % (A) 15 %; MCHC 35.6 g/dL (31.0-37.0); MCV 87.2 fL (80.0-100.0); Mean Platelet Volume 9.6; Monocytes # (A) 0.5 k/uL (0-1.0); Monocytes % (A) 4 %; Neutrophils # (A) 9.4 k/uL (1.3-7.7); Neutrophils % (A) 79 %; Platelet Count 112 k/uL (150-450); RBC 3.62 m/uL (3.80-5.40); RDW 13.5 % (11.5-15.5)
--- NOTE | 2022-02-11 09:09 | P.OP ---
Date of Procedure: 02/10/22 Preoperative Diagnosis: 1. Intrauterine at 39-0/7 weeks. 2. Breech presentation. 3. Spontaneous rupture of membranes. 4. Antiphospholipid antibody syndrome. Postoperative Diagnosis: Same Procedure(s) Performed: Primary low transverse section Anesthesia: spinal (Duramorph) Surgeon: Isabela Palacios Cover Remover #1: Lang Bonilla Estimated Blood Loss (ml): 450 Pathology: other (Placenta) Condition: stable Disposition: floor Indications for Procedure: This is a 36-year-old female 2 para 0 at 39-0/7 weeks who presented for primary low transverse section due to breech presentation and spontaneous rupture of membranes. Please see history and physical for details of patient's admission. Operative Findings: A viable male is noted in the selene breech presentation with scores of 8 at 1 minute and 9 at 5 minutes and weight of 8 lbs. 0 oz. Normal uterus tubes and ovaries are noted. Description of Procedure: The patient is taken to the operating room where she is placed in the dorsal supine position with leftward tilt after spinal Duramorph anesthesia is given. She is prepped and draped in the normal sterile fashion. Skin was tested and found to be adequately anesthetized. A Pfannenstiel skin incision was made with a scalpel. A second knife was used to carry the incision down to the underlying layer of fascia. The fascia was nicked in the midline with a scalpel and then extended laterally bilaterally with Wilkerson scissors. The anterior lip of the fascia was grasped with 2 Marita clamps and then dissected off the underlying rectus muscle in the midline with Wilkerson scissors. The inferior aspect of the fascial incision was grasped with 2 Marita clamps and dissected off the underlying rectus muscle and the midline with Wilkerson scissors. Next the peritoneum layer was tented up with 2 hemostats and then entered sharply with the scalpel. The incision is extended superiorly and inferiorly with Metzenbaum scissors. Next a DeLee retractor is placed. The vesicouterine peritoneum is entered sharply with Metzenbaum scissors and extended laterally bilaterally with Metzenbaum scissors and then the bladder flap is pushed inferiorly. The lower uterine segment is incised in transverse fashion with the scalpel and then bluntly entered with a hemostat. Clear fluid is noted. The incision was then extended laterally bilaterally with 2 fingers. Next the infant's buttocks is delivered through the incision. Next the legs are delivered in a flexed position followed by the trunk followed by the arms in flexed position and the head in a flexed position. Nose and mouth are bulb suctioned. Cord is clamped and cut. Infant is taken to warmer by nursing staff. Uterine fundus is gently massaged and placenta is delivered manually. Uterus is exteriorized and cleared of all clots and debris. Uterine incision is closed with 0 Vicryl suture in a running locked fashion. A second layer of 0 Vicryl suture is used in a running fashion for hemostasis. Once adequate hemostasis as assured, the vesicouterine peritoneum is reapproximated with 2-0 Vicryl suture in a running fashion. Posterior cul-de-sac is suctioned of all clots and debris. Uterus is returned to the abdomen. Incision is noted to be hemostatic. Peritoneal layer is closed with 0 Vicryl suture in a running fashion. Muscle layer is reapproximated with 0 Vicryl suture in interrupted fashion. Fascia layer is then closed with 0 PDS suture with 2 sutures meeting in the midline and the knots buried in either side and in the midline. The subcutaneous tissue was then closed with 2-0 Vicryl suture. Skin layer was then closed with danielle. All sponge and needle counts are correct. The patient is taken to recovery room in stable condition.
--- NOTE | 2022-02-11 09:15 | P.PNOBGPC ---
Subjective - Subjective Principal diagnosis: Status post primary section postoperative day #1 Interval history: Patient is doing well. She has not ambulated yet. Her catheter was just removed. She is passing some flatus but no bowel movement yet. Pain is fairly well controlled at this time. She is breast feeding. Patient reports: Reports appetite normal, Reports pain well controlled, Reports ambulating normally [place]: doing well, nursing well Objective - Vital Signs Latest vital signs: Vital Signs Temp Pulse Resp BP Pulse Ox 02/11/22 08:53 16 98 02/11/22 08:00 97.8 F 76 16 110/71 98 02/11/22 03:00 16 98 02/11/22 01:05 98 02/11/22 01:00 16 99 02/11/22 00:00 97.8 F 73 16 119/66 02/10/22 22:57 16 98 02/10/22 22:10 97.9 F 78 16 107/58 98 02/10/22 21:40 72 16 102/57 99 02/10/22 21:10 65 16 109/61 98 02/10/22 21:05 16 98 02/10/22 20:55 72 16 107/55 97 02/10/22 20:40 83 16 98/50 98 02/10/22 20:25 85 16 98/48 98 02/10/22 20:10 96.1 F L 82 16 96/51 98 02/10/22 20:05 96.1 F L 82 16 96/51 98 02/10/22 18:59 97.0 F L 89 16 133/75 99 Intake and Output 02/10/22 02/11/22 02/11/22 22:59 06:59 14:59 Intake Total 200 Output Total 711 750 Balance -711 -750 200 Intake: IV 125 Oral 75 Output: Estimated Blood Loss 450 Output, Quantitative 261 750 Blood Loss Other: Voiding Method Indwelling Catheter Indwelling Catheter Weight 120.202 kg - Exam Extremities: Present: normal. Absent: tenderness Abdomen: Present: normal appearance, soft (Positive bowel sounds 4). Absent: distention, tenderness Incision: Present: normal, dry, intact. Absent: erythematous Uterus: Present: normal, firm. Absent: tenderness - Labs Labs: Abnormal Lab Results - Last 24 Hours (Table) 02/10/22 02/11/22 Range/Units 19:06 07:58 WBC 10.9 H 12.0 H (3.8-10.6) k/uL RBC 3.62 L (3.80-5.40) m/uL Hgb 11.2 L (11.4-16.0) gm/dL Hct 31.5 L (34.0-46.0) % Plt Count 112 L (150-450) k/uL Neutrophils # 8.2 H 9.4 H (1.3-7.7) k/uL Assessment and Plan Assessment: Status post primary low transverse section postoperative day #1 Plan: Continue with postoperative care today. Will start Lovenox this morning.
[2022-02-11] MEDS: PRENATAL VIT-IRON-FOLIC ACID 1 EACH TABLET PO SCH (11:42)
[2022-02-11] MEDS: ENOXAPARIN 40 MG/0.4 ML SYRINGE SQ SCH ×2 (20:34→21:29)
[2022-02-11 20:57] VITALS: RESP 16
[2022-02-12] MEDS: ACETAMINOPHEN TAB 500 MG TAB PO SCH ×3 (00:08→12:28)
[2022-02-12] MEDS: IBUPROFEN 600 MG TAB PO SCH ×2 (03:03→09:07)
[2022-02-12] MEDS: SENNOSIDES-DOCUSATE SODIUM 1 EACH TAB PO SCH (07:36)
[2022-02-12 07:41] VITALS: BP 110/72; PULSE 80; TEMP 97.9
--- NOTE | 2022-02-12 08:09 | P.HPOB ---
History of Present Illness H&P Date: 02/10/22 Chief Complaint: Breech presentation with spontaneous rupture membranes This is a 36 y.o. female, 2, para 0, with an estimated date of confinement of 02/17/2022, estimated gestational age of 39-0/7 weeks, who presents for primary section due to breech presentation. Her is complicated by history of superficial thromboembolism and probable antiphospholipid syndrome and she has been on Lovenox and more recently Heparin for this. She admits to good movement and denies regular contractions.She presents this evening complaining of spontaneous rupture of membranes at approximately 5:30 PM with clear fluid noted. She denies feeling regular contractions. Her baby is confirmed to still be in a breech presentation. labs: Random glucose-84 Hepatitis B surface antigen-neg Rubella-immune Syphilis antibody-neg HIV-NR Blood type-B+ Antibody screen-neg Trichomonas-neg 1 hr. GTT-140, repeat-156, 3 hr. wnl GBS-neg OB Hx: . History of 1 ectopic, s/p D&C & Methotrexate Candy Catcher Hx: Hx chlamydia treated years ago. Social Hx: Single. Works phone sales & farming. Review of Systems Constitutional: Denies chills, Denies fever Eyes: denies blurred vision, denies pain Ears, nose, mouth and throat: Denies headache, Denies sore throat Cardiovascular: Denies chest pain, Denies shortness of breath Respiratory: Denies cough Gastrointestinal: Denies abdominal pain, Denies diarrhea, Denies nausea, Denies vomiting Genitourinary: Reports pelvic pain, Reports Musculoskeletal: Reports low back pain Integumentary: Denies pruritus, Denies rash Neurological: Denies numbness, Denies weakness Psychiatric: Denies anxiety, Denies depression Past Medical History Past Medical History: Blood Disorder Additional Past Medical History / Comment(s): hx of superficial blood clot in leg and diagnosed with antiphospholipid antibody syndrome History of Any Multi-Drug Resistant Organisms: None Reported Additional Past Surgical History / Comment(s): D&Cs Past Anesthesia/Blood Transfusion Reactions: No Reported Reaction Past Psychological History: No Psychological Hx Reported Smoking Status: Never smoker Past Alcohol Use History: Occasional Past Drug Use History: Marijuana Additional Drug Use History / Comment(s): past hx occ marijuana use - Past Family History Mother Family Medical History: Cancer, Thyroid Disorder Additional Family Medical History / Comment(s): lymphoma Medications and Allergies Home Medications Medication Instructions Recorded Confirmed Type Vit No.179/Iron/Folic 1 each PO DAILY 12/26/21 02/10/22 History [ Tablet] Aspirin 81 mg PO HS 12/30/21 02/10/22 History Heparin Sodium,Porcine [Heparin 1 ml SQ Q12HR 01/22/22 02/10/22 History Sodium] Multivit with Calcium,Iron,Min 1 each PO DAILY 02/05/22 02/10/22 History [Women's Multivitamin] Allergies Allergy/AdvReac Type Severity Reaction Status Date / Time No Known Allergies Allergy Verified 02/10/22 19:00 Exam Osteopathic Statement: *. No significant issues noted on an osteopathic structural exam other than those noted in the History and Physical/Consult. HEENT: within normal limits Heart: regular rate and rhythm Lungs: clear to auscultation bilaterally Abdomen: , non-tender Cervix: 1 cm/50%/high heart tones: 140's by doppler Extremities: Neg. Salo's Results Result Diagrams: 02/11/22 07:58 Assessment and Plan (1) 39 weeks gestation of Current Visit: No Status: Acute Code(s): Z3A.39 - 39 WEEKS GESTATION OF SNOMED Code(s): 94524427 (2) Breech position of fetus Current Visit: No Status: Acute Code(s): KKY9365 - SNOMED Code(s): 4304828685 (3) Antiphospholipid antibody syndrome complicating Current Visit: No Status: Acute Code(s): O99.119 - OTH DIS OF BLD/BLD-FORM ORG/IMMUN MECHNSM COMP PREG,UNSP TRI; D68.61 - ANTIPHOSPHOLIPID SYNDROME SNOMED Code(s): 285082109 Plan: Proceed with primary low transverse section. I have discussed the risks, benefits, and alternative therapies for the above- mentioned procedure and for both sedation/anesthesia as well as necessary blood products administration, if indicated, as they pertain to this patient. The patient has indicated her understanding and acceptance of the risks and pr ocedures discussed.
[2022-02-12] MEDS: PRENATAL VIT-IRON-FOLIC ACID 1 EACH TABLET PO SCH (09:07)
--- NOTE | 2022-02-12 09:23 | P.DS ---
Providers Date of admission: 02/10/22 18:58 Expected date of discharge: 02/12/22 Attending physician: Isabela Palacios Primary care physician: Stated None Hospital Course: This is a 36-year-old female 2 para 0 at 39-0/7 weeks who presented for primary section after spontaneous rupture of membranes on 02/10/2022. Baby delivered via primary low transverse section in the selene breech presentation with scores of 8 at 1 minute and 9 at 5 minutes and infant weight of 8 lbs. 0 oz. Her and postoperative course were uncomplicated. Lochia was decreasing. Pain is fairly well controlled. She is passing flatus but no bowel movement yet. She is breast-feeding without difficulty. Vital signs are stable. Abdomen is soft with positive bowel sounds 4. Incision is clean dry and intact with danielle in place. Extremities show negative Homans. Impression is status post primary low transverse section postoperative day #2. Plan is to discharge home later today. Routine postoperative and instructions are given. She is advised to follow up in the office in 6 weeks for check. She will be given a prescription for ibuprofen and Lovenox 40 mg subcu daily. She will continue the Lovenox for 6 weeks . She is advised follow-up in the office in 1-2 weeks for postoperative check and in 6 weeks for the check. Procedures: Primary low transverse section for delivery of a viable male on 02/10/2022 Patient Condition at Discharge: Stable Plan - Discharge Summary New Discharge Prescriptions: New Enoxaparin [Lovenox] 40 mg SQ DAILY #30 each Ibuprofen [Motrin] 600 mg PO Q6H #60 tab Continue Vit No.179/Iron/Folic [ Tablet] 1 each PO DAILY No Action Aspirin 81 mg PO HS Heparin Sodium,Porcine [Heparin Sodium] 1 ml SQ Q12HR Multivit with Calcium,Iron,Min [Women's Multivitamin] 1 each PO DAILY Discharge Medication List Vit No.179/Iron/Folic [ Tablet] 1 each PO DAILY 12/26/21 [History] Aspirin 81 mg PO HS 12/30/21 [History] Heparin Sodium,Porcine [Heparin Sodium] 1 ml SQ Q12HR 01/22/22 [History] Multivit with Calcium,Iron,Min [Women's Multivitamin] 1 each PO DAILY 02/05/22 [History] Enoxaparin [Lovenox] 40 mg SQ DAILY #30 each 02/12/22 [Rx] Ibuprofen [Motrin] 600 mg PO Q6H #60 tab 02/12/22 [Rx] Follow up Appointment(s)/Referral(s): Isabela Palacios DO [Doctor of Osteopathic Medicine] - 03/24/22 4:00 pm (Post Op Appointment 02-16-2022 at 9:30) Activity/Diet/Wound Care/Special Instructions: Instructions 1. Do not begin any exercise program for 3 weeks. 2. Do not resume sexual relations for 3 weeks or longer if uncomfortable. 3. You may take tub baths or showers at any time. 4. You may use tampons if desired after 3 weeks. 5. Keep the area of episiotomy (stitches) clean and dry. 6. If you are not nursing, wear a good fitting, supportive bra during the day and limit fluid intake for at least 1 week to prevent breast engorgement. 7. Call the office, [phone], within the next week to make appointment for your 6 week checkup if it has not already been made. 8. Report any of the following occurrences to the doctor promptly: a. Heavy, excessive bleeding b. Chills, fever c. Burning or frequency of urination d. Pain or redness and breasts if nursing e. Increasing pain or swelling in episiotomy (stitches). In addition to the above instructions, the following additional should be followed: 1. No heavy lifting or straining (exercising) until after 6 week checkup. 2. Keep abdominal incision clean and dry: You may wear a dressing if more comfortable. 3. Make office appointment for 10 days after going home or as instructed by her doctor. Discharge Disposition: HOME SELF-CARE
[2022-02-12] MEDS: ENOXAPARIN 40 MG/0.4 ML SYRINGE SQ SCH ×3 (10:49→14:58)
== END 2022-02-12 15:00 | disposition home or self-care (01) | DRG 787 ==
LOC: FBPOP 18:25 → 4FBP 18:58
PROVIDERS: ADMIT Obstetrics & Gynecology; ATTEND Obstetrics & Gynecology
PROC: 4A0HXCZ Measurement of Products of Conception, Cardiac Rate, External Approach (ICD-10-PCS; 2022-02-10)
PROC: 10D00Z1 Extraction of Products of Conception, Low, Open Approach (ICD-10-PCS; principal; 2022-02-10 19:30)
DX: O42.913 Preterm premature rupture of membranes, unspecified as to length of time between rupture and onset of labor, third trimester (principal); D68.61 Antiphospholipid syndrome; O99.12 Other diseases of the blood and blood-forming organs and certain disorders involving the immune mechanism complicating childbirth; O98.32 Other infections with a predominantly sexual mode of transmission complicating childbirth; O32.1XX0 Maternal care for breech presentation, not applicable or unspecified; A56.02 Chlamydial vulvovaginitis; O99.72 Diseases of the skin and subcutaneous tissue complicating childbirth; L29.9 Pruritus, unspecified; Z3A.39 39 weeks gestation of pregnancy; Z79.82 Long term (current) use of aspirin; Z37.0 Single live birth
CPT/HCPCS: 85025; 86850; 86900; 86901

== ENCOUNTER → 2024-05-26 | Outpatient (CLI) | payer MEDICAID ==
--- NOTE | 2024-05-26 18:48 | XR ---
EXAMINATION TYPE: XR lumbosacral spine 5 views DATE OF EXAM: 05/26/2024 9:40 AM COMPARISON: None CLINICAL INDICATION: Female, 38 years old with history of M54.50 low back pain; PHH, pain TECHNIQUE: 5 views FINDINGS: There is a transitional lumbosacral segment is noted as a sacralized L5. Mild facet degenerative salcedo ge lower lumbar spine. Mild degenerative disc disease L4-L5. Otherwise, vertebral body heights are pr eserved and alignment is maintained. IMPRESSION: 1. Mild facet arthropathy lower lumbar spine. 2. A transitional lumbosacral segment denoted as a sacralized L5. There is mild degenerative disc dis ease above at L4-L5. [facility], , 05/26/2024 6:46 PM
== END | disposition home or self-care (01) ==
LOC: RADXRMAIN 09:18
PROVIDERS: ATTEND Family Medicine
DX: M47.816 Spondylosis without myelopathy or radiculopathy, lumbar region (principal); M51.360 Other intervertebral disc degeneration, lumbar region with discogenic back pain only
CPT/HCPCS: 72110